=== PATIENT | female | born 1945 | race Caucasian/White ===

== ENCOUNTER 2023-02-26 13:25 | Emergency (ER) | payer MEDICARE, SELFPAY ==
--- NOTE | ~2023-02-26 | XR_ITS ---
EXAMINATION: XR foot LT min 3V DATE: 02/26/2023 13:57 INDICATION: Left foot pain. TECHNIQUE: 4 views of left foot were obtained. COMPARISON: None. FINDINGS: Bone alignment is normal. No fracture. There is severe osteoarthritis of first metatarsopha langeal joint and mild osteoarthritis of some the interphalangeal joints and midfoot joints. There ar e enthesophytes at the posterior and plantar aspects of calcaneal tuberosity. IMPRESSION: 1. Polyarticular osteoarthritis. Reviewed, dictated and finalized at location A.
[2023-02-26 13:36] VITALS: BP 120/55; PULSE 59; RESP 16; TEMP 36.8; O2SAT 100
--- NOTE | 2023-02-26 14:34 | ED.EXTPRO ---
HPI - Extremity Problem General Chief complaint: Extremity Problem,Nontraumatic Stated complaint: Left Foot Pain Source: patient Mode of arrival: ambulatory Limitations: no limitations History of Present Illness HPI Narrative: Patient presents for evaluation of left foot pain. Symptom onset 3 days ago. She woke from sleep and noted pain as she tried to get up out of bed. She cannot identify any precipitating cause or injury, although she states she very well could have had a misstep when trying to navigate around her cats. She states pain is constant, 8/10 in severity and worse when she wears shoes that have good arch support. She has tried taking 400mg ibuprofen which seems to reduce her pain level. She has a hx of osteoarthritis. She has had plantar fasciitis in the other foot in the past. Related Data Home Medications Medication Instructions Recorded Confirmed atenolol 50 mg tablet mg 02/26/23 escitalopram oxalate 10 mg tablet mg 02/26/23 hydrochlorothiazide 25 mg tablet mg 02/26/23 Allergies Allergy/AdvReac Type Severity Reaction Status Date / Time tramadol Allergy Intermediate panic and Verified 02/17/16 15:07 anxiety povidone-iodine Allergy Mild Blisters Verified 02/17/16 15:07 soap Allergy Mild Blisters Verified 02/17/16 15:07 Review of Systems Review of Systems: CONSTITUTIONAL: Denies fever, chills, or sweats. EYES: Denies visual changes, redness, or discharge. ENT: Denies rhinorrhea, congestion, sore throat, or otalgia. CARDIOVASCULAR: Denies chest pain, palpitations, or edema. RESPIRATORY: Denies cough or dyspnea. GASTROINTESTINAL: Denies abdominal pain, nausea, vomiting, or diarrhea. GENITOURINARY: Denies dysuria or hematuria. SKIN: Denies rash or itching. MUSCULOSKELETAL:Reports left foot pain. NEUROLOGIC: Denies headache, numbness, dizziness, or weakness. PSYCHIATRIC: Denies anxiety or depression. [facility] Past Medical History Medical History Hypertension Osteoarthritis Plantar fasciitis Surgical History Surgical History History of knee replacement S/P rotator cuff repair Family History Family History Mother Family history non-contributory Social History Social History Substance use: never Living arrangements: alone Gender identity (if verbalized by the patient): Female Spiritual care concerns: No Exam Narrative: GENERAL: Well-appearing, well-nourished, and in no acute distress. HEAD: Normocephalic, atraumatic. EYES: PERRLA and EOMI. ENT: Nares clear, no rhinorrhea or epistaxis. Mucous membranes moist. Oropharynx without tonsillar hypertrophy exudate or other lesions. Bilateral TMs pearly valadez nonbulging NECK: Supple. No adenopathy or masses. No carotid bruits or JVD CHEST: Clear to auscultation. No respiratory distress. No wheezes rales or rhonchi HEART: Regular rate and rhythm. No murmur heard. Normal peripheral pulses. ABDOMEN: Soft, nontender, nondistended, normal active bowel sounds. EXTREMITIES: Normal range of motion. No edema. No tenderness in left foot. No crepitus or deformity. SKIN: Warm, dry, no rash. NEURO: No focal deficits. Alert and oriented x3. PSYCH: Normal mood and affect. Course Course Emergency Course: This is a 77-year-old female who presented for evaluation of left foot pain. She does have arthritis on x-ray. Exam is consistent with plantar fasciitis. She has responded well to ibuprofen but is taking some trips and is concerned about her pain level. Will give her a small quantity of Tylenol with codeine as it has helped historically for pain. She was provided with a post-op shoe. Advised on RICE therapy. Follow up with podiatry. Go to ER for intractable pain. Pt in agreement with plan
== END 2023-02-26 14:41 | disposition home or self-care (01) ==
PROVIDERS: Emergency Provider Nurse Practitioner
DX: M72.2 Plantar fascial fibromatosis (principal); I10 Essential (primary) hypertension; M19.90 Unspecified osteoarthritis, unspecified site
CPT/HCPCS: 73630; 99214; G0463